=== PATIENT | male | born 1975 | race African-American/Black ===

== ENCOUNTER 2016-10-24 23:06 | Emergency (ER) | payer MEDICAID ==
[~2016-10-24] VITALS: Ht 182.9 cm; Wt 105.0 kg
[2016-10-24 23:44] VITALS: BP 146/98
[2016-10-25] MEDS ORDERED: CIPROFLOXACIN 500 MG TABLET PO ONE
== END 2016-10-25 00:43 | disposition home or self-care (01) ==
LOC: ED 23:59
DX: Z76.0 Encounter for issue of repeat prescription (principal); G44.219 Episodic tension-type headache, not intractable; I10 Essential (primary) hypertension
CPT/HCPCS: 93005; 99283

== ENCOUNTER 2017-08-20 02:43 | Inpatient (IN) | payer MEDICAID ==
[~2017-08-20] VITALS: Ht 180.3 cm; Wt 101.0 kg
[2017-08-20] VITALS (8 sets, daily range): BP systolic 128–163; BP diastolic 78–132
[2017-08-20] MEDS ORDERED: ALBUTEROL SULFATE 2.5 MG/3 ML NPPB ONE (03:30)
[2017-08-20] MEDS ORDERED: ALBUTEROL SULFATE 2.5 MG/3 ML ONE (03:42)
[2017-08-20 03:49] LABS: MEAN CORPUSCULAR HEMOGLOBIN 29.2 pg (27.5-34.5); MEAN CORPUSCULAR VOLUME 88.5 fL (81-97); MEAN PLATELET VOLUME 8.8 fL (7.4-10.4); PLATELET COUNT 259 x10^3/uL (130-400); RED BLOOD COUNT 4.84 x10^6/uL (4.38-5.82); RED CELL DISTRIBUTION WIDTH 13.6 % (9.4-14.8)
[2017-08-20 03:54] LABS: ALANINE AMINOTRANSFERASE 41 U/L (12-78); ALBUMIN 2.9 g/dL (3.4-5.0); ANION GAP 9 mmol/L (5-15); CALCIUM 8.3 mg/dL (8.5-10.1); CHLORIDE 106 mmol/L (98-107); CREATININE 1.51 mg/dL (0.7-1.3)
[2017-08-20 03:58] LABS: ALKALINE PHOSPHATASE 95 U/L (45-117); BILIRUBIN,TOTAL 0.9 mg/dL (0.2-1.0); TOTAL PROTEIN 6.9 g/dL (6.4-8.2); TROPONIN I 0.083 ng/mL (0.000-0.045)
[2017-08-20 04:07] LABS: MD YES
[2017-08-20 04:10] LABS: LYMPH#(MANUAL) 3.69 x10^3/uL (1-3.4); LYMPHS% (MANUAL) 38 % (22-44); MONOS#(MANUAL) 0.19 x10^3/uL (0.3-2.7); MONOS% (MANUAL) 2 % (2-9); SEG#(MANUAL) 5.82 x10^3/uL (1.8-6.8); SEGS% (MANUAL) 60 % (42-75)
[2017-08-20 04:11] LABS: <PLATELET ESTIMATE> ADEQUATE; <RBC MORPHOLOGY> NORMAL; LARGE PLATELETS 1+
[2017-08-20] MEDS ORDERED: ASPIRIN 81 MG TABLET CHEW ONE ×2 (04:13→07:43)
[2017-08-20] MEDS ORDERED: ASPIRIN 81 MG TABLET CHEW PO ONE (04:30)
[2017-08-20 04:50] LABS: AMPHETAMINE SCREEN, URINE Positive (Negative); BARBITURATE SCREEN, URINE Negative (Negative); BENZODIAZEPINE SCREEN, URINE Negative (Negative); CANNABINOID SCREEN, URINE Negative (Negative); COCAINE SCREEN, URINE Negative (Negative); METHADONE SCREEN, URINE Negative (Negative); OPIATE SCREEN, URINE Negative (Negative)
[2017-08-20 04:51] LABS: MICROSCOPIC AUTO
[2017-08-20 04:56] LABS: CULTURE INDICATED? NO
[2017-08-20] MEDS ORDERED: SODIUM CHLORIDE 0.9% 1,000 ML IV SCH (05:15)
[2017-08-20] MEDS ORDERED: ACETAMINOPHEN 325 MG TABLET PO PRN (05:30)
[2017-08-20] MEDS ORDERED: DOCUSATE 100 MG CAPSULE PO PRN (05:30)
[2017-08-20] MEDS ORDERED: POLYETHYLENE GLYCOL 17 GM PACKET PO PRN (05:30)
[2017-08-20] MEDS ORDERED: morphine SULFATE 10 MG/ML, 1ML IVPush PRN (05:30)
[2017-08-20] MEDS ORDERED: ONDANSETRON 2MG/ML, 2ML IVPush PRN (05:30)
[2017-08-20] MEDS ORDERED: hydrALAzine 20 MG/ML, 1ML ONE (05:39)
[2017-08-20] MEDS: hydrALAzine 20 MG/ML, 1ML IV PRN ×2 (05:44→12:30)
[2017-08-20] MEDS ORDERED: LABETALOL 5MG/ML, 20ML ONE (06:29)
[2017-08-20] MEDS ORDERED: NICOTINE 14MG/24 HR PATCH.TD24 ONE (06:31)
[2017-08-20] MEDS ORDERED: ENOXAPARIN 40 MG/0.4 ML ONE (06:31)
[2017-08-20] MEDS: LABETALOL 5MG/ML, 20ML IVPush PRN ×2 (06:33→10:07)
[2017-08-20] MEDS: NICOTINE 14MG/24 HR PATCH.TD24 TD SCH (06:33)
[2017-08-20] MEDS: ENOXAPARIN 40 MG/0.4 ML SQ SCH (06:34)
[2017-08-20] MEDS: ASPIRIN 81 MG TABLET CHEW PO SCH (10:07)
[2017-08-20 10:41] LABS: TROPONIN I 0.073 ng/mL (0.000-0.045)
[2017-08-20] MEDS ORDERED: LABETALOL 5MG/ML, 20ML IVPush PRN (12:30)
[2017-08-20] MEDS: AMLODIPINE 5 MG TABLET PO SCH (14:00)
[2017-08-20] MEDS: CARVEDILOL 6.25 MG TABLET PO SCH (17:55)
[2017-08-20] MEDS: ATORVASTATIN 20 MG TABLET PO SCH (20:52)
[2017-08-21 00:01] VITALS: BP 153/99
[2017-08-21] MEDS: HYDROcodone/APAP 5/325 TABLET PO PRN (03:14)
[2017-08-21] MEDS: NICOTINE 14MG/24 HR PATCH.TD24 TD SCH ×2 (05:35→10:57)
[2017-08-21] MEDS: CARVEDILOL 6.25 MG TABLET PO SCH ×2 (05:35→19:53)
[2017-08-21] MEDS: ENOXAPARIN 40 MG/0.4 ML SQ SCH ×2 (05:35→10:58)
[2017-08-21 05:54] LABS: TROPONIN I 0.052 ng/mL (0.000-0.045)
[2017-08-21 05:57] LABS: CHLORIDE 109 mmol/L (98-107); CREATININE 1.08 mg/dL (0.7-1.3)
[2017-08-21 06:08] LABS: ANION GAP 9 mmol/L (5-15); CALCIUM 8.5 mg/dL (8.5-10.1); CHOL/HDL RATIO 2.7; CHOLESTEROL, TOTAL 90 mg/dL (140-239); HDL CHOL % 37 % (26-37); HDL CHOLESTEROL (DIRECT) 33 mg/dL (40-60); LDL CHOLESTEROL,CALCULATED 45 mg/dL (54-169); LDL/HDL RATIO 1.4 (0.5-3.0); TRIGLYCERIDES 62 mg/dL (50-200); VLDL CHOLESTEROL 12 mg/dL (0-25)
[2017-08-21] MEDS ORDERED: REGADENOSON 0.4 MG/5 ML SYRINGE ONE (08:15)
[2017-08-21 08:39] VITALS: BP 150/121
[2017-08-21] MEDS: hydrALAzine 20 MG/ML, 1ML IV PRN (09:40)
[2017-08-21] MEDS ORDERED: LISINOPRIL 5 MG TABLET PO SCH (10:00)
[2017-08-21] MEDS: POTASSIUM CHLORIDE 10 MEQ TABLET.ER PO SCH (10:56)
[2017-08-21] MEDS: ASPIRIN 81 MG TABLET CHEW PO SCH (10:56)
[2017-08-21] MEDS: AMLODIPINE 5 MG TABLET PO SCH (10:56)
[2017-08-21] MEDS: FUROSEMIDE 20 MG/2 ML IV SCH (10:56)
[2017-08-21] MEDS: SPIRONOLACTONE 25 MG TABLET PO SCH (11:08)
[2017-08-21 14:30] VITALS: BP 126/87
[2017-08-21 19:11] VITALS: BP 132/87
[2017-08-21] MEDS: ATORVASTATIN 20 MG TABLET PO SCH (19:53)
[2017-08-22 02:54] VITALS: BP 132/103
[2017-08-22] MEDS: HYDROcodone/APAP 5/325 TABLET PO PRN (02:57)
[2017-08-22 05:28] LABS: ANION GAP 8 mmol/L (5-15); CALCIUM 8.1 mg/dL (8.5-10.1); CHLORIDE 107 mmol/L (98-107); CREATININE 1.09 mg/dL (0.7-1.3)
[2017-08-22] MEDS: CARVEDILOL 6.25 MG TABLET PO SCH (05:42)
[2017-08-22 08:54] VITALS: BP 125/93
[2017-08-22] MEDS: POTASSIUM CHLORIDE 10 MEQ TABLET.ER PO SCH (08:55)
[2017-08-22] MEDS: ASPIRIN 81 MG TABLET CHEW PO SCH (08:56)
[2017-08-22] MEDS: SPIRONOLACTONE 25 MG TABLET PO SCH (08:56)
[2017-08-22] MEDS: NICOTINE 14MG/24 HR PATCH.TD24 TD SCH (08:57)
[2017-08-22] MEDS: LISINOPRIL 10 MG TABLET PO SCH (09:00)
[2017-08-22] MEDS: FUROSEMIDE 20 MG/2 ML IV SCH (11:00)
[2017-08-22] MEDS: CARVEDILOL 12.5 MG TABLET PO SCH (17:07)
[2017-08-22 17:45] LABS: TROPONIN I 0.035 ng/mL (0.000-0.045)
[2017-08-22 19:14] VITALS: BP 139/98
[2017-08-22] MEDS: ATORVASTATIN 20 MG TABLET PO SCH (19:35)
[2017-08-23 01:51] VITALS: BP 131/95
[2017-08-23] MEDS: ENOXAPARIN 40 MG/0.4 ML SQ SCH (05:32)
[2017-08-23] MEDS: CARVEDILOL 12.5 MG TABLET PO SCH ×3 (05:35→20:30)
[2017-08-23 07:25] VITALS: BP 138/103
[2017-08-23] MEDS ORDERED: MAGNESIUM SULFATE PMX 2GM/50ML 50 ML IV ONE (08:30)
[2017-08-23] MEDS: SPIRONOLACTONE 25 MG TABLET PO SCH (08:48)
[2017-08-23] MEDS: ASPIRIN 81 MG TABLET CHEW PO SCH (08:48)
[2017-08-23] MEDS: LISINOPRIL 10 MG TABLET PO SCH (08:48)
[2017-08-23] MEDS: POTASSIUM CHLORIDE 10 MEQ TABLET.ER PO SCH (08:49)
[2017-08-23] MEDS: FUROSEMIDE 40 MG/4 ML IV SCH ×2 (08:57→17:36)
[2017-08-23] MEDS ORDERED: FUROSEMIDE 40 MG TABLET PO SCH (09:00)
[2017-08-23 09:04] LABS: ANION GAP 9 mmol/L (5-15); CALCIUM 8.5 mg/dL (8.5-10.1); CHLORIDE 107 mmol/L (98-107); CREATININE 1.03 mg/dL (0.7-1.3)
[2017-08-23 15:45] VITALS: BP 138/101
[2017-08-23] MEDS ORDERED: FUROSEMIDE 40 MG/4 ML IV SCH (17:00)
[2017-08-23 19:07] VITALS: BP 118/85
[2017-08-23] MEDS: ATORVASTATIN 20 MG TABLET PO SCH (20:30)
[2017-08-23] MEDS ORDERED: CAPSAICIN CRM 0.025%, 60GM TP PRN (21:30)
[2017-08-24 02:07] VITALS: BP 119/79
[2017-08-24 05:44] VITALS: BP 139/99
[2017-08-24] MEDS: CARVEDILOL 12.5 MG TABLET PO SCH (05:45)
[2017-08-24] MEDS: NICOTINE 14MG/24 HR PATCH.TD24 TD SCH (05:48)
[2017-08-24] MEDS: ENOXAPARIN 40 MG/0.4 ML SQ SCH (05:48)
[2017-08-24 06:33] LABS: ANION GAP 6 mmol/L (5-15); CALCIUM 8.4 mg/dL (8.5-10.1); CHLORIDE 105 mmol/L (98-107)
[2017-08-24 06:34] LABS: CREATININE 1.16 mg/dL (0.7-1.3)
[2017-08-24 07:31] VITALS: BP 125/90
[2017-08-24] MEDS: POTASSIUM CHLORIDE 10 MEQ TABLET.ER PO SCH (08:43)
[2017-08-24] MEDS: SPIRONOLACTONE 25 MG TABLET PO SCH (08:43)
[2017-08-24] MEDS: LISINOPRIL 10 MG TABLET PO SCH (08:43)
[2017-08-24] MEDS: ASPIRIN 81 MG TABLET CHEW PO SCH (08:44)
[2017-08-24] MEDS ORDERED: FUROSEMIDE 40 MG TABLET PO SCH (09:00)
[2017-08-24] MEDS ORDERED: ASPI-515 PO (11:36)
[2017-08-24] MEDS ORDERED: SPIR25TA PO (11:36)
[2017-08-24] MEDS ORDERED: NICO-486 TD (11:36)
[2017-08-24] MEDS ORDERED: ATOR20TA9 PO (11:36)
[2017-08-24] MEDS ORDERED: POTA10TA5 PO (11:36)
[2017-08-24] MEDS ORDERED: FURO40TA6 PO (11:36)
[2017-08-24] MEDS ORDERED: LISI-167 PO (11:36)
[2017-08-24] MEDS ORDERED: CARV12.543 PO (11:36)
== END 2017-08-24 12:41 | disposition home or self-care (01) | DRG 280 ==
LOC: ED 03:26 → SUATTDRO 05:12 → EDIP 05:15 → 5SO 09:15 → DCLOUNGE 08-24 12:17
PROVIDERS: ADMIT Family Medicine; ATTEND Family Medicine
DX: I21.4 Non-ST elevation (NSTEMI) myocardial infarction (principal); I50.21 Acute systolic (congestive) heart failure; N17.0 Acute kidney failure with tubular necrosis; I47.2 Ventricular tachycardia; E44.0 Moderate protein-calorie malnutrition; I42.9 Cardiomyopathy, unspecified; I11.0 Hypertensive heart disease with heart failure; I08.1 Rheumatic disorders of both mitral and tricuspid valves; F12.10 Cannabis abuse, uncomplicated; F15.10 Other stimulant abuse, uncomplicated; F17.210 Nicotine dependence, cigarettes, uncomplicated; F41.9 Anxiety disorder, unspecified; I44.1 Atrioventricular block, second degree; Z79.82 Long term (current) use of aspirin; Z91.19 Patient's noncompliance with other medical treatment and regimen; Z68.31 Body mass index [BMI] 31.0-31.9, adult
CPT/HCPCS: 36415; 71045; 78452; 80048; 80053; 80061; 80307; 81001; 83690; 83735; 83880; 84100; 84484; 85025; 93005; 93017; 93306; 94640; 99285; J1650; J1940; J2785; J7613; A9502; C9898; J0360; J3475

== ENCOUNTER 2017-09-09 03:45 | Emergency (ER) | payer MEDICAID ==
[~2017-09-09] VITALS: Ht 180.3 cm; Wt 113.0 kg
[~2017-09-09 03:45] MED LIST: ASPI-515 PO; ATOR20TA9 PO; CARV12.543 PO; FURO40TA6 PO; LISI-167 PO; NICO-486 TD; POTA10TA5 PO; SPIR25TA PO
[2017-09-09] MEDS ORDERED: LISINOPRIL 10 MG TABLET PO ONE (05:00)
[2017-09-09] MEDS ORDERED: SODIUM CHLORIDE FLUSH 10ML SYR IVF ONE (05:00)
[2017-09-09] MEDS ORDERED: SODIUM CHLORIDE 0.9% 1,000ML IVBOLUS ONE (05:00)
[2017-09-09] MEDS ORDERED: CARVEDILOL 12.5 MG TABLET PO ONE (05:00)
[2017-09-09] MEDS ORDERED: ASPIRIN 81 MG TABLET CHEW PO ONE (05:00)
[2017-09-09] MEDS ORDERED: ASPIRIN 81 MG TABLET CHEW ONE (05:04)
[2017-09-09] MEDS ORDERED: LISINOPRIL 20 MG TABLET ONE (05:04)
[2017-09-09 06:03] LABS: INTERNATIONAL NORMALIZED RATIO 1.16 (0.93-1.1)
[2017-09-09 06:05] LABS: ALANINE AMINOTRANSFERASE 26 U/L (12-78); ALBUMIN 2.9 g/dL (3.4-5.0); ANION GAP 6 mmol/L (5-15); CALCIUM 8.4 mg/dL (8.5-10.1); CHLORIDE 112 mmol/L (98-107); CREATININE 0.91 mg/dL (0.7-1.3)
[2017-09-09 06:09] LABS: ALKALINE PHOSPHATASE 73 U/L (45-117); BILIRUBIN,TOTAL 0.7 mg/dL (0.2-1.0); TOTAL PROTEIN 6.9 g/dL (6.4-8.2); TROPONIN I 0.041 ng/mL (0.000-0.045)
[2017-09-09 06:26] LABS: BASOPHILS # (AUTO) 0.04 x10^3/uL (0-0.1); BASOPHILS % (AUTO) 0 % (0-1); EOSINOPHILS # (AUTO) 0.39 x10^3/uL (0-0.4); EOSINOPHILS % (AUTO) 4 % (1-7); LYMPHOCYTES # (AUTO) 2.15 x10^3/uL (1-3.4); LYMPHOCYTES % (AUTO) 21 % (22-44); MD NO; MEAN CORPUSCULAR HEMOGLOBIN 28.2 pg (27.5-34.5); MEAN CORPUSCULAR HGB CONC 32.6 g/dL (33.2-36.2); MEAN CORPUSCULAR VOLUME 86.5 fL (81-97); MEAN PLATELET VOLUME 9.4 fL (7.4-10.4); MONOCYTES # (AUTO) 0.71 x10^3/uL (0.2-0.8); MONOCYTES % (AUTO) 7 % (2-9); NEUTROPHILS % (AUTO) 68 % (42-75); PLATELET COUNT 229 x10^3/uL (130-400); RED BLOOD COUNT 5.06 x10^6/uL (4.38-5.82); RED CELL DISTRIBUTION WIDTH 13.3 % (9.4-14.8)
[2017-09-09 06:52] VITALS: BP 138/96
== END 2017-09-09 06:49 | disposition home or self-care (01) ==
LOC: ED 06:30
DX: R06.00 Dyspnea, unspecified (principal); I10 Essential (primary) hypertension; G47.33 Obstructive sleep apnea (adult) (pediatric); I11.0 Hypertensive heart disease with heart failure; I25.2 Old myocardial infarction; J44.9 Chronic obstructive pulmonary disease, unspecified; I50.9 Heart failure, unspecified
CPT/HCPCS: 36415; 71046; 80053; 84484; 85025; 85610; 93005; 96360; 99285; J7030

== ENCOUNTER 2018-03-20 22:54 | Emergency (ER) | payer MEDICAID ==
[~2018-03-20] VITALS: Ht 180.3 cm; Wt 112.5 kg
[2018-03-20] MEDS ORDERED: OXYcodone/APAP 5/325MG TABLET PO ONE (23:30)
[2018-03-20] MEDS ORDERED: LIDOCAINE-MPF 1%, 5ML INFIL ONE (23:30)
[2018-03-20] MEDS ORDERED: OXYcodone/APAP 5/325MG TABLET ONE (23:39)
[2018-03-20] MEDS ORDERED: LIDOCAINE-MPF 2%, 2ML ONE (23:39)
[2018-03-21 00:48] VITALS: BP 178/112
== END 2018-03-21 00:56 | disposition home or self-care (01) ==
LOC: ED 03-21 00:20
DX: S01.112A Laceration without foreign body of left eyelid and periocular area, initial encounter (principal); I11.0 Hypertensive heart disease with heart failure; I50.9 Heart failure, unspecified; R07.9 Chest pain, unspecified; Y04.8XXA Assault by other bodily force, initial encounter; Y93.89 Activity, other specified; Y99.8 Other external cause status; Y92.89 Other specified places as the place of occurrence of the external cause
CPT/HCPCS: 12051; 70450; 71046; 93005; 99284

== ENCOUNTER 2019-06-21 12:55 | Emergency (ER) | payer MEDICAID ==
[~2019-06-21] VITALS: Ht 180.3 cm; Wt 94.6 kg
[~2019-06-21 12:55] MED LIST changes: +ATOR20TA37 PO; -ATOR20TA9 PO
[2019-06-21 13:40] VITALS: BP 183/106
--- NOTE | 2019-06-21 13:41 | NUR ---
DISCHARGED HOME AFTER THOROUGH HISTORY REVIEW TO FIND CORRECT MEDS PATIENT IS ON REPEAT B/P QUITE ELEVATED. HOWEVER WITHOUT SYMPTOMS. (PATIENT HAS NOT TAKEN HIS MEDS TODAY). PATIENT IN THE COMPANY OF SPOUSE-TO FILL THEN TAKE MEDS IMMEDIATELY
== END 2019-06-21 13:40 | disposition home or self-care (01) ==
LOC: ED 13:30
DX: I11.0 Hypertensive heart disease with heart failure (principal); I50.9 Heart failure, unspecified; Z76.0 Encounter for issue of repeat prescription; I25.2 Old myocardial infarction; F17.200 Nicotine dependence, unspecified, uncomplicated
CPT/HCPCS: 99283

== ENCOUNTER 2020-02-18 01:05 | Emergency (ER) | payer SELFPAY ==
[~2020-02-18] VITALS: Ht 180.3 cm; Wt 108.1 kg
[2020-02-18 01:25] VITALS: BP 160/117
--- NOTE | 2020-02-18 01:25 | NUR ---
THIS IS A 44Y M THAT COMES IN AFTER BEING SEEN AT [facility] FOR SOB. PT HAS HX OF CHF AND COPD. PT ABLE TO SPEAK IN FULL SENTENCES [facility] PT CONNECTED TO ALL MONITORING VSS
[2020-02-18] MEDS ORDERED: FUROSEMIDE 20 MG TABLET PO ONE (01:30)
[2020-02-18] MEDS ORDERED: FUROSEMIDE 20 MG TABLET ONE (01:35)
[2020-02-18] MEDS ORDERED: ALBUTEROL/IPRATROPIUM 2.5MG/0.5MG, 3 ML NPPB ONE (02:30)
[2020-02-18] MEDS ORDERED: ALBUTEROL/IPRATROPIUM 2.5MG/0.5MG, 3 ML ONE (02:40)
--- NOTE | 2020-02-18 04:47 | NUR ---
Patient/Caregiver given discharge instructions and they have confirmed that they understand the instructions. Patient ambulatory with steady gait.
== END 2020-02-18 04:48 | disposition home or self-care (01) ==
LOC: ED 04:00
DX: R06.00 Dyspnea, unspecified (principal); I25.2 Old myocardial infarction; I11.0 Hypertensive heart disease with heart failure; I50.9 Heart failure, unspecified; F17.210 Nicotine dependence, cigarettes, uncomplicated
CPT/HCPCS: 93005; 94640; 99283; 99406